=== PATIENT | female | born 1975 | race Caucasian/White ===

== ENCOUNTER 2017-04-22 18:26 | Emergency (ER) | payer BC ==
--- NOTE | 2017-04-22 19:20 | UC ---
FLU HPI - HPI Summary HPI Summary: 41 y/o female presents to the urgent care c/o body aches, fever, BRANCH, sore throat , B/L ear pain for the past 2 days. Pt reports vomiting started today at noon after she ate lunch at an event. She has had 4 episodes of vomiting. Last one here at the clinic. She tried to take Nyquill PO this afternoon and she vomited after taking it. Pt reports pain w/ swallowing is 5/10. She had subjective fever this morning. She states mild epigastric abdominal cramping pain which is relief w/ vomiting. No radiation. She also had mild frequency on urination. She has Pt denies SOB, chest pain, lower back pain, flank pain, hematuria, diarrhea or constipation, vaginal discharge. LMP:04/01/2017 w/ regular menstrual cycles. - History of Current Complaint Chief Complaint: UCRespiratory Stated Complaint: VOMITING, BODY ACHES, EAR PAIN Time Seen by Provider: 04/22/17 19:18 Hx Obtained From: Patient Hx Last Menstrual Period: 1 WEEK AGO ?: No Onset/Duration: Gradual Onset, Lasting Days - 2 days, Still Present, Worse Since - today Severity Currently: Mild Severity Initially: Moderate Pain Intensity: 6 Pain Scale Used: 0-10 Numeric Associated Signs & Symptoms: Positive: Fever, Myalgia, Sore Throat, Nasal Congestion, Headache, Vomiting - 4 episodes - Risk Factors Influenza Risk Factors: Negative - Allergy/Home Medications Allergies/Adverse Reactions: Allergies Allergy/AdvReac Type Severity Reaction Status Date / Time cefaclor [From [facility]] Allergy Severe Hives Verified 04/22/17 18:33 Adhesive Tape Allergy Itching Verified 04/22/17 18:33 Home Medications: Home Medications FLUoxetine CAP* [Prozac CAP*] 30 mg PO DAILY 04/22/17 [History Confirmed ] Fluticasone NASAL SPRAY 50MCG* [Flonase NASAL SPRAY 50MCG*] 04/22/17 [History] Omeprazole CAP* [Prilosec CAP* 20 MG] 40 mg PO DAILY 04/22/17 [History Confirmed 04/22/17] Rx Allergy Med* 04/22/17 [History] PMH/Surg Hx/FS Hx/Imm Hx Previously Healthy: Yes Respiratory History: Asthma GI/ History: Gastroesophageal Reflux Psychological History: Depression - Surgical History Surgical History: Yes Surgery Procedure, Year, and Place: LT KNEE ARTHRO FOR TORN MENISCUS, RIGHT ROTATOR CUFF SURGERY 2016 - Family History Known Family History: Positive: Hypertension - Social History Occupation: Employed Full-time Lives: With Family Alcohol Use: Occasionally Alcohol Amount: 1-2/WEEK Substance Use Type: None Smoking Status (MU): Never Smoked Tobacco - Immunization History Most Recent Influenza Vaccination: 2013 Most Recent Tetanus Shot: recent Most Recent Pneumonia Vaccination: none Review of Systems Constitutional: Fever, Chills, Fatigue, Other - body aches Skin: Negative Eyes: Negative ENT: Sore Throat, Ear Ache - B/L ear pain, Nasal Discharge, Sinus Congestion Respiratory: Negative Cardiovascular: Negative Gastrointestinal: Vomiting, Nausea Genitourinary: Frequency Motor: Negative Neurovascular: Negative Musculoskeletal: Negative Neurological: Headache Psychological: Negative Is Patient Immunocompromised?: No All Other Systems Reviewed And Are Negative: Yes Physical Exam - Summary Physical Exam Summary: Vital Signs Reviewed: Yes General:Patient is a well developed and nourished female who is laying in the examining table w/ mild discomfort due to just 1 episode of vomiting. Patient is not in any acute respiratory distress. Eyes: Positive: Conjunctiva Clear - PERRLA, EOMI, fundi grossly normal ENT: Positive: Normal ENT inspection, Hearing grossly normal, Nose: edematous nasal mucosa w/ clear nasal discharge. Pharynx w/ erythema, no exudate, mild B/ L tonsilar enlargement w/o exudate. TMs normal Neck: Positive: Supple, Nontender, Positive mild anterior cervical lymphadenopathy. Respiratory: Positive: Chest non-tender, Lungs clear, Normal breath sounds, No respiratory distress Cardiovascular: Positive: RRR,S1 and S2 present, No Murmur, Pulses Normal, Brisk Capillary Refill Abdomen Description: Positive: Nontender, Other: - Abd: Flat with no distention. No surface trauma, scars, incisions. hyperactive bowel sounds present in all four quadrants. No tenderness, guarding, rigidity to palpation. No masses palpated, no pulsation in epigastric area. No organomegaly. Negative [place] signs. No periumbilical tenderness. No rebound in the lower quadrants. NT over [place] point. . Good femoral pulses bilaterally. No hernia noted. No CVAT bilaterally Musculoskeletal: Positive: Strength Intact, ROM Intact, No Edema,FROM in all major joints, no edema, no cyanosis or clubbing. Neuro: Alert and oriented x 3. No acute neurological deficits. Speech is normal. Psychological: WNL Skin: Dry and warm Triage Information Reviewed: Yes Vital Signs: Initial Vital Signs Temp 99.8 F 04/22/17 18:29 Pulse 97 04/22/17 18:29 Resp 18 04/22/17 18:29 BP 140/77 04/22/17 18:29 Pulse Ox 100 04/22/17 18:29 Flu Course/Dx - Course Course Of Treatment: 41 y/o female presents to the urgent care c/o body aches, fever, BRANCH, sore throat, B/L ear pain for the past 2 days. Pt reports vomiting started today at noon after she ate lunch at an event. She has had 4 episodes of vomiting. Last one here at the clinic. She tried to take Nyquill PO this afternoon and she vomited after taking it. Pt reports pain w/ swallowing is 5/ 10. She had subjective fever this morning. She states mild epigastric abdominal cramping pain which is relief w/ vomiting. No radiation. She also had mild frequency on urination. She has Pt denies SOB, chest pain, lower back pain, flank pain, hematuria, diarrhea or constipation, vaginal discharge. LMP:2017 w/ regular menstrual cycles.Hx obtained. Pt febrile and w/ a viral syndrome on examination. Pt had an episode of vomiting while being triaged. Pt given Tylenol PO and Zofran PO to alleviate symptoms. Rapid strep and Influenza A&B ordered, results:negative. Pt tolerated well medications and observed for 20 min. Pt felt betters. Eventhough Influenza negative. I think Pt has the flu. Pt will be Tx w/ Tamiflu PO. First dose given at the clinic tonight. Rx TAmiflu PO and Zofran PO. 2 tabs of Zofran dispense home to cover for night. Pt advised to increase fluid intake, eat light soft meals and rest. Advised if she develops severe abdominal pain w/ vomiting to go immediately to the ER for furtherevaluation and treatment. D/C instructions explained, all questions answered. Pt's BP mildly elevated, may due to symptoms. Advised to f/u w/ PCP is it continues to be elevated. Pt understood and agreed w/ plan of care.Pt left the clinic ambulating, Hemodynamically stable, A&Ox3 and feeling better. - Differential Dx/Diagnosis Differential Diagnosis/HQI/PQRI: Bronchitis, Influenza, Upper Respiratory Infection, Other - pharyngitis, gastroenteritis, viral syndrome, Provider Diagnoses: 1-Viral syndrome. 2-Acute Nausea and vomiting. 3-Elevated BP w/o Hx of HTN Discharge - Discharge Plan Condition: Stable Disposition: HOME Prescriptions: Acetaminophen TAB* [Tylenol TAB*] 650 mg PO Q6H PRN #30 tab PRN Reason: Fever Ondansetron ODT TAB* [Zofran 4 MG Odt TAB*] 4 mg PO Q6H PRN #10 tab.odt PRN Reason: Vomiting Oseltamivir CAP* [Tamiflu CAP*] 75 mg PO BID #9 cap Patient Education Materials: Acute Nausea and Vomiting (ED), Viral Syndrome (ED ) Forms: *Work Release Referrals: Zandra Lira MD [Primary Care Provider] - 2 Days Additional Instructions: 1- Please take Tamiflu PO as directed. First dose given at the clinic tonight. 2-Please take Zofran PO as directed only if you continue w/ nausea and vomiting. Increase fluid intake w/ Pedialyte OTC or Gatorade. Eat small portions of soft meals. 3-Take Tylenol PO q4-6hrs to alleviate pain and swelling 4- If fever or severe abdominal pain develops w/ vomiting please go immediately to the ER for further evaluation and treatment. 5- Otherwise f/u w/ your PCP if not improving of symptoms. 6- Your BP is elevated today. please decrease salt in your diet, monitor BP and if it continues to be elevated please f/u with your PCP for further management
[2017-04-22] MEDS ORDERED: Ondansetron ODT TAB* 4 MG PO ONE ×2 (19:26→20:38)
[2017-04-22 19:34] VITALS: BP 0/0
[2017-04-22] MEDS ORDERED: Acetaminophen TAB* 325 MG PO ONE (19:43)
[2017-04-22] MEDS ORDERED: Oseltamivir CAP* 75 MG CAP PO ONE (20:38)
== END 2017-04-22 20:55 | disposition home or self-care (01) ==
LOC: UCEAST 18:26
DX: B34.9 Viral infection, unspecified (principal); R11.2 Nausea with vomiting, unspecified; R03.0 Elevated blood-pressure reading, without diagnosis of hypertension; J45.909 Unspecified asthma, uncomplicated; K21.9 Gastro-esophageal reflux disease without esophagitis; F32.9 Major depressive disorder, single episode, unspecified; Z88.1 Allergy status to other antibiotic agents; Z91.048 Other nonmedicinal substance allergy status
CPT/HCPCS: 81003; 87502; 87651; 99213; A9270-GY; G0463

== ENCOUNTER 2018-07-25 20:18 | Emergency (ER) | payer SELFPAY ==
[2018-07-25 20:47] LABS: Urine Appearance Clear; Urine Bacteria 1+ (Absent); Urine Bilirubin Negative (Negative); Urine Blood 1+ (Negative); Urine Color Yellow; Urine Glucose Negative (Negative); Urine Ketones Negative (Negative); Urine Nitrite Negative (Negative); Urine Protein Negative (Negative); Urine Red Blood Cell 2+(6-10/hpf) (Absent); Urine Specific Gravity 1.011 (1.010-1.030); Urine Squamous Epithelial Cell Present (Absent); Urine Urobilinogen Negative (Negative); Urine White Blood Cell Trace(0-5/hpf) (Absent)
[2018-07-25 21:18] LABS: ABS Basophils 0.1 10^3/ul (0-0.2); ABS Eosinophils 0.2 10^3/ul (0-0.6); ABS Lymphocytes 2.9 10^3/ul (1.0-4.8); ABS Monocytes 0.6 10^3/ul (0-0.8); ABS Neutrophils 3.1 10^3/ul (1.5-7.7); Eosinophil % 2.9 %; Hematocrit 37 % (35-47); Hemoglobin 12.6 g/dL (12.0-16.0); Lymphocyte % 41.7 %; Mean Corpuscular HGB Conc 34 g/dL (31-36); Mean Corpuscular Hemoglobin 32 pg (27-31); Mean Corpuscular Volume 94 fL (80-97); Mean Platelet Volume 8.2 fL (7.4-10.4); Nucleated Red Blood Cells % 0.1; Platelet Count 343 10^3/uL (150-450); Red Blood Count 3.98 10^6 /uL (3.70-4.87); Red Cell Distribution Width 15 % (10-15); White Blood Count 6.9 10^3/uL (3.5-10.8)
[2018-07-25 21:27] LABS: Albumin 4.3 g/dL (3.2-5.2); Albumin/Globulin Ratio 1.5 (1-3); BUN/Creatinine Ratio 12.2 (8-20); C Reactive Protein 1.71 mg/L (<8.01); Calcium 9.8 mg/dL (8.6-10.3); EGFR African American 83.5 (>60); Globulin 2.8 g/dL (2-4); Potassium 4.2 mmol/L (3.5-5.0); Total Bilirubin 0.4 mg/dL (0.2-1.0); Total Protein 7.1 g/dL (6.4-8.9)
[2018-07-25] MEDS: Ketorolac INJ* 30 MG/ML 1 ML VIAL IV PUSH ONE (22:03)
[2018-07-25] MEDS: Morphine 4 MG/ML VIAL (1 ml) 4 MG/ML VIAL IV ONE (22:04)
--- NOTE | 2018-07-25 22:21 | ED ---
GI/ HPI - HPI Summary HPI Summary: 43-year-old female presents with severe left lower quadrant pain today. She states that pain radiates to left flank. Denies any urinary symptoms. No hematuria. No nausea or vomiting. She had a bowel movement but did not change the pain. She does admits to some loose stools. Has history of colitis and kidney stones. He states this does not feel similar. No abnormal vaginal discharge. No chest pain or shortness breath. Hasn't taking anything for her symptoms. denies any previous abdominal surgeries. - History of Current Complaint Chief Complaint: EDAbdPain Time Seen by Provider: 07/25/18 21:46 Stated Complaint: ABDOMINAL PAIN PER PT Hx Last Menstrual Period: 1 WEEK AGO Pain Intensity: 6 - Additional Pertinent History Primary Care Physician: RAINE - Allergy/Home Medications Allergies/Adverse Reactions: Allergies Allergy/AdvReac Type Severity Reaction Status Date / Time cefaclor [From Ceclor] Allergy Severe Hives Verified 04/22/17 18:33 Adhesive Tape Allergy Itching Verified 04/22/17 18:33 Home Medications: Home Medications Escitalopram * [Lexapro *] 20 mg PO DAILY 07/25/18 [History Confirmed 07/25/18] PMH/Surg Hx/FS Hx/Imm Hx Endocrine/Hematology History: Denies: Hx Diabetes, Hx Thyroid Disease Cardiovascular History: Denies: Hx Congestive Heart Failure, Hx Hypertension, Hx Pacemaker/ICD Respiratory History: Reports: Hx Chronic Bronchitis - as a child, up to age 10 Denies: Hx Asthma, Hx Pneumonia GI History: Reports: Hx Gastroesophageal Reflux Disease, Hx Ulcer - 2006, esophageal, Other GI Disorders - high fat caused diarrhea; endoscopy,colonoscopy Denies: Hx Gastrointestinal Bleed - not until last night Comment Only: Hx Irritable Bowel - maybe, has had some symptoms History: Reports: Hx Kidney Stones - passed 1 stone in late Denies: Hx Kidney Infection, Hx Renal Disease Musculoskeletal History: Reports: Other Musculoskeletal History - right rotator cuff, disk protrusion w/pinched nerves, torn left meniscus Sensory History: Reports: Hx Contacts or Glasses Denies: Hx Hearing Aid Opthamlomology History: Reports: Hx Contacts or Glasses Neurological History: Reports: Hx Migraine - under stress or lack of sleep Denies: Other Neuro Impairments/Disorders Psychiatric History: Reports: Hx Anxiety, Hx Panic Disorder - Surgical History Surgery Procedure, Year, and Place: LT KNEE ARTHRO FOR TORN MENISCUS, RIGHT ROTATOR CUFF SURGERY 2016 Hx Anesthesia Reactions: No Infectious Disease History: No Infectious Disease History: Denies: Traveled Outside the [place] in Last 30 Days - Family History Known Family History: Positive: Hypertension Family History: Unobtainable due to Level 5 caveat - Social History Alcohol Use: Occasionally Alcohol Amount: 1-2/WEEK Substance Use Type: Reports: None Smoking Status (MU): Never Smoked Tobacco Review of Systems Negative: Fever Negative: Chest Pain Negative: Shortness Of Breath Positive: Abdominal Pain. Negative: Vomiting, Diarrhea, Nausea Positive: flank pain. Negative: dysuria All Other Systems Reviewed And Are Negative: Yes Physical Exam Triage Information Reviewed: Yes Vital Signs On Initial Exam: Initial Vitals Temp Pulse Resp BP Pulse Ox 98.4 F 89 20 113/80 98 07/25/18 20:19 07/25/18 20:19 07/25/18 20:19 07/25/18 20:19 07/25/18 20:19 Vital Signs Reviewed: Yes Appearance: Positive: Well-Appearing Skin: Positive: Warm, Dry Head/Face: Positive: Normal Head/Face Inspection Eyes: Positive: Normal, Conjunctiva Clear ENT: Positive: Pharynx normal Respiratory/Lung Sounds: Positive: Clear to Auscultation, Breath Sounds Present Cardiovascular: Positive: Normal, RRR Abdomen Description: Positive: Soft, CVA Tenderness (L), Other: - tenderness LLQ Bowel Sounds: Positive: Present Musculoskeletal: Positive: Normal Neurological: Positive: Normal Psychiatric: Positive: Normal Diagnostics - Vital Signs Vital Signs Temp Pulse Resp BP Pulse Ox 07/25/18 22:04 18 07/25/18 20:19 98.4 F 89 20 113/80 98 - Laboratory Lab Results: Lab Results 07/25/18 07/25/18 07/25/18 Range/Units 20:35 21:02 21:02 WBC 6.9 (3.5-10.8) 10^3/uL RBC 3.98 (3.70-4.87) 10^6 /uL Hgb 12.6 (12.0-16.0) g/dL Hct 37 (35-47) % MCV 94 (80-97) fL MCH 32 H (27-31) pg MCHC 34 (31-36) g/dL RDW 15 (10-15) % Plt Count 343 (150-450) 10^3/uL MPV 8.2 (7.4-10.4) fL Neut % (Auto) 45.0 % Lymph % (Auto) 41.7 % [place] % (Auto) 9.3 % Eos % (Auto) 2.9 % Baso % (Auto) 1.1 % Absolute Neuts (auto) 3.1 (1.5-7.7) 10^3/ul Absolute Lymphs (auto) 2.9 (1.0-4.8) 10^3/ul Absolute Monos (auto) 0.6 (0-0.8) 10^3/ul Absolute Eos (auto) 0.2 (0-0.6) 10^3/ul Absolute Basos (auto) 0.1 (0-0.2) 10^3/ul Absolute Nucleated RBC 0.0 10^3/ul Nucleated RBC % 0.1 Sodium 140 (135-145) mmol/L Potassium 4.2 (3.5-5.0) mmol/L Chloride 108 (101-111) mmol/L Carbon Dioxide 27 (22-32) mmol/L Anion Gap 5 (2-11) mmol/L BUN 11 (6-24) mg/dL Creatinine 0.90 (0.51-0.95) mg/dL Est GFR ( Amer) 83.5 (>60) Est GFR (Non-Af Amer) 69.0 (>60) BUN/Creatinine Ratio 12.2 (8-20) Glucose 108 H (70-100) mg/dL Lactic Acid (0.5-2.0) mmol/L Calcium 9.8 (8.6-10.3) mg/dL Total Bilirubin 0.40 (0.2-1.0) mg/dL AST 15 (13-39) U/L ALT 12 (7-52) U/L Alkaline Phosphatase 73 (34-104) U/L C-Reactive Protein 1.71 (<8.01) mg/L Total Protein 7.1 (6.4-8.9) g/dL Albumin 4.3 (3.2-5.2) g/dL Globulin 2.8 (2-4) g/dL Albumin/Globulin Ratio 1.5 (1-3) Lipase 30 (11.0-82.0) U/L Urine Color Yellow Urine Appearance Clear Urine pH 5.0 (5-9) Ur Specific [place] 1.011 (1.010-1.030) Urine Protein Negative (Negative) Urine Ketones Negative (Negative) Urine Blood 1+ A (Negative) Urine Nitrate Negative (Negative) Urine Bilirubin Negative (Negative) Urine Urobilinogen Negative (Negative) Ur Leukocyte Esterase Negative (Negative) Urine WBC (Auto) Trace(0-5/hpf) (Absent) Urine RBC (Auto) 2+(6-10/hpf) A (Absent) Ur Squamous Epith Cells Present A (Absent) Urine Bacteria 1+ A (Absent) Urine Glucose Negative (Negative) 07/25/18 Range/Units 21:02 WBC (3.5-10.8) 10^3/uL RBC (3.70-4.87) 10^6 /uL Hgb (12.0-16.0) g/dL Hct (35-47) % MCV (80-97) fL MCH (27-31) pg MCHC (31-36) g/dL RDW (10-15) % Plt Count (150-450) 10^3/uL MPV (7.4-10.4) fL Neut % (Auto) % Lymph % (Auto) % [place] % (Auto) % Eos % (Auto) % Baso % (Auto) % Absolute Neuts (auto) (1.5-7.7) 10^3/ul Absolute Lymphs (auto) (1.0-4.8) 10^3/ul Absolute Monos (auto) (0-0.8) 10^3/ul Absolute Eos (auto) (0-0.6) 10^3/ul Absolute Basos (auto) (0-0.2) 10^3/ul Absolute Nucleated RBC 10^3/ul Nucleated RBC % Sodium (135-145) mmol/L Potassium (3.5-5.0) mmol/L Chloride (101-111) mmol/L Carbon Dioxide (22-32) mmol/L Anion Gap (2-11) mmol/L BUN (6-24) mg/dL Creatinine (0.51-0.95) mg/dL Est GFR ( Amer) (>60) Est GFR (Non-Af Amer) (>60) BUN/Creatinine Ratio (8-20) Glucose (70-100) mg/dL Lactic Acid 0.7 (0.5-2.0) mmol/L Calcium (8.6-10.3) mg/dL Total Bilirubin (0.2-1.0) mg/dL AST (13-39) U/L ALT (7-52) U/L Alkaline Phosphatase (34-104) U/L C-Reactive Protein (<8.01) mg/L Total Protein (6.4-8.9) g/dL Albumin (3.2-5.2) g/dL Globulin (2-4) g/dL Albumin/Globulin Ratio (1-3) Lipase (11.0-82.0) U/L Urine Color Urine Appearance Urine pH (5-9) Ur Specific [place] (1.010-1.030) Urine Protein (Negative) Urine Ketones (Negative) Urine Blood (Negative) Urine Nitrate (Negative) Urine Bilirubin (Negative) Urine Urobilinogen (Negative) Ur Leukocyte Esterase (Negative) Urine WBC (Auto) (Absent) Urine RBC (Auto) (Absent) Ur Squamous Epith Cells (Absent) Urine Bacteria (Absent) Urine Glucose (Negative) Result Diagrams: 07/25/18 21:02 07/25/18 21:02 Lab Statement: Any lab studies that have been ordered have been reviewed, and results considered in the medical decision making process. - CT abd CT Interpretation Completed By: Radiologist Summary of CT Findings: IMPRESSION: 1. No acute findings. 2. No radiopaque renal or ureteral calculi. No hydronephrosis or perinephric. stranding. Of note , assessment of the renal parenchyma is limited by lack of IV. contrast. 3. Diverticulosis coli. No diverticulitis or bowel obstruction. Re-Evaluation - Re-Evaluation First Eval Re-Evaluation Time: 23:28 Change: Improved Comment: pain better but still present mid left abd GIGU Course/Dx - Course Course Of Treatment: 43-year-old female presents with severe left lower quadrant pain today. She states that pain radiates to left flank. Denies any urinary symptoms. No hematuria. No nausea or vomiting. She had a bowel movement but did not change the pain. She does admits to some loose stools. Has history of colitis and kidney stones. He states this does not feel similar. No abnormal vaginal discharge. No chest pain or shortness breath. Hasn't taking anything for her symptoms. denies any previous abdominal surgeries. On exam tenderness in left lower quadrant and left flank. wbc normal. CRP normal. Urine shows potential UTI. CT shows no acute findings. discussed will treat as potential uti with bactrim as do not have any other reason for pain. Told to follow-up with primary. Warned if anything changes to return. Patient understands agrees plan. - Diagnoses Differential Diagnoses - Female: Pyelonephritis, Urinary Tract Infection, Ureteral Calculi Provider Diagnoses: Abdominal pain, UTI (urinary tract infection) Discharge - Sign-Out/Discharge Documenting (check all that apply): Patient Departure Patient Received Moderate/Deep Sedation with Procedure: No - Discharge Plan Condition: Good Disposition: HOME Prescriptions: Sulfamethox/Trimethoprim DS* [Bactrim DS 800/160 TAB*] 1 tab PO BID #5 tab Patient Education Materials: Urinary Tract Infection in Women (ED), Acute Abdominal Pain (ED) Referrals: Zandra Lira MD [Primary Care Provider] - Additional Instructions: Take Bactrim twice a day for 3 days, first dose given in ED drink plenty of fluids Follow up with primary in 5 days Return to ED if develop any new or worsening symptoms - Billing Disposition and Condition Condition: GOOD Disposition: Home
[2018-07-25] MEDS: Sulfamethox/Trimethoprim DS 800/160* TAB PO ONE (23:40)
[2018-07-25 23:48] VITALS: BP 118/80
== END 2018-07-25 23:47 | disposition home or self-care (01) ==
LOC: ED 20:18
DX: N39.0 Urinary tract infection, site not specified (principal); F41.9 Anxiety disorder, unspecified; Z79.899 Other long term (current) drug therapy
CPT/HCPCS: 36415; 74176; 80053; 81003; 81015; 83605; 83690; 85025; 86140; 87086; 96374; 96375; 99283; A9270-GY; J1885; J2270